=== PATIENT | male | born 1970 | race Caucasian/White ===

== ENCOUNTER → 2020-07-26 | Day surgery (SDC) | payer OTHER ==
[~2020-07-26] MED LIST: CRESTOR10 MG PO; DEXAMETHASONE SOD PHOS 10 MG/1 ML VIAL ONE; FENTANYL CITRATE/PF 100MCG/2 ML INJ ONE; IOPAMIDOL 200 MG/ML 20 ML VIAL IT ONE; LIDOCAINE HCL 1% 30ML-PF VIAL ONE; LIDOCAINE HCL 2% LOCAL INJ 5 ML SDV VIAL INJ ONE; MIDAZOLAM HCL 2 MG/2 ML VIAL ONE; NEURONTIN100 MG PO; PROPOFOL IV EMULSION 10 MG/ML 20 ML VIAL ONE; SERTRALINE HCL50 MG PO
[2020-07-26 07:10] VITALS: BP 123/90
== END | disposition home or self-care (01) ==
LOC: OR 05:18
PROVIDERS: ATTEND Physical Medicine & Rehabilitation Pain Medicine
DX: M54.16 Radiculopathy, lumbar region (principal); M51.26 Other intervertebral disc displacement, lumbar region; R93.7 Abnormal findings on diagnostic imaging of other parts of musculoskeletal system; U07.1 COVID-19; E78.00 Pure hypercholesterolemia, unspecified; Z01.810 Encounter for preprocedural cardiovascular examination; Z01.812 Encounter for preprocedural laboratory examination
CPT/HCPCS: 64483; 64484 ×2; 93005; J1100; J2001 ×2; J2250; J2704; J3010; Q9967; U0002; 77003

== ENCOUNTER → 2020-09-20 | Day surgery (SDC) | payer OTHER ==
[~2020-09-20] MED LIST changes: +POVIDONE IODINE 0.05% 0.05 % ML PO ONE; +TRIAMCINOLONE ACET 40 MG/ML VIAL ONE
[2020-09-20 07:38] VITALS: BP 117/80
== END | disposition home or self-care (01) ==
LOC: OR 05:43
PROVIDERS: ATTEND Physical Medicine & Rehabilitation Pain Medicine
DX: M47.896 Other spondylosis, lumbar region (principal); M54.16 Radiculopathy, lumbar region; M51.26 Other intervertebral disc displacement, lumbar region; E78.00 Pure hypercholesterolemia, unspecified; Z86.16 Personal history of COVID-19
CPT/HCPCS: 64493; 64494; J1100; J2001 ×2; J2250; J2704; J3010; J3301; Q9967; 77003